=== PATIENT | female | born 1995 | race African-American/Black ===

== ENCOUNTER 2016-06-19 19:18 | Emergency (ER) | payer BC, MEDICAID ==
[2016-06-19] MEDS ORDERED: Ibuprofen 200 MG TAB ONE (20:42)
== END 2016-06-19 21:01 | disposition home or self-care (01) ==
LOC: ER 19:18 → FASTR 21:01
DX: S46.011A Strain of muscle(s) and tendon(s) of the rotator cuff of right shoulder, initial encounter (principal); X50.0XXA Overexertion from strenuous movement or load, initial encounter